=== PATIENT | female | born 1985 | race Caucasian/White ===

== ENCOUNTER 2016-11-06 05:05 | Day surgery (SDC) | payer OTHER ==
[~2016-11-06 05:05] MED LIST: BACTRIM DS TAB1 EAC2 PO; CELEXA40 M2 PO; CPAP; DIFFERIN TOP; IBUPROFEN200 M2 PO; JUNEL FE 1 MG-1 EACH PO; NORCO 5-325 TA1 EACH PO; OMEPRAZOLE40 M2 PO; PROAIR HFA8.5 GM INH; REQUIP1 M1 PO; SINGULAIR10 M1 PO; SYMBICORT INH; TYLENOL EXTRA500 M1 PO; ZYRTEC1010 PO
[2016-11-07] MEDS ORDERED: PERCOCET 5-3251 EACH PO (12:13)
== END 2016-11-07 13:25 ==
LOC: SHSA 05:05 → ORW 06:58 → PACU 08:17 → OBGF 09:50
PROC: 0UT94ZZ Resection of Uterus, Percutaneous Endoscopic Approach (ICD-10-PCS; principal; 2016-11-06)
PROC: 0UTC4ZZ Resection of Cervix, Percutaneous Endoscopic Approach (ICD-10-PCS; 2016-11-06)
PROC: 0UB74ZZ Excision of Bilateral Fallopian Tubes, Percutaneous Endoscopic Approach (ICD-10-PCS; 2016-11-06)
DX: D25.9 Leiomyoma of uterus, unspecified (principal); E28.2 Polycystic ovarian syndrome; J45.909 Unspecified asthma, uncomplicated; K21.9 Gastro-esophageal reflux disease without esophagitis; F32.9 Major depressive disorder, single episode, unspecified; Z91.040 Latex allergy status; Z98.818 Other dental procedure status; Z79.899 Other long term (current) drug therapy
CPT/HCPCS: J0690; J3010; J7030; J7121

== ENCOUNTER 2016-12-05 19:03 | Emergency (ER) | payer OTHER ==
[~2016-12-05 19:03] MED LIST changes: +PERCOCET 5-3251 EACH PO
[2016-12-05] MEDS ORDERED: FLAGYL500 M1 PO (19:26)
[2016-12-05] MEDS ORDERED: ESTRADIOL1 M1 PO (19:29)
[2016-12-05 20:44] LABS: URINE APPEARANCE HAZY; URINE BILIRUBIN NEGATIVE (NEG); URINE BLOOD LARGE (NEG); URINE COLOR YELLOW; URINE GLUCOSE (UA) NEGATIVE (NEG); URINE KETONE NEGATIVE (NEG); URINE LEUKOCYTE ESTERASE POSITIVE (NEG); URINE NITRITE NEGATIVE (NEG); URINE PROTEIN MODERATE (NEG)
[2016-12-05 20:45] LABS: BASO % 0.5 % (0-2); EOS % 8.9 % (0-7); HGB-HEMOGLOBIN 12.9 gm/dl (12.0-15.5); IMMATURE GRANULOCYTES ABSOLUTE 0.03 tho/cmm (0-0.03); IMMATURE GRANULOCYTES PERCENT 0.2 % (0-0.3); LYMPH % 44.8 % (20-45); MCH (MEAN CORPUSCULAR HGB) 25.8 pg (28.0-32.0); MCHC MEAN CORPUSCULAR HGB CONC 33.1 % (32.0-36.0); MEAN PLATELET VOLUME 9.1 cmc (9.4-12.4); MONO % 5.9 % (0-12); NEUTROPHIL ABSOLUTE COUNT 4.8 tho/cmm (1.6-8.0); NEUTROPHIL-AUTOMATED 4.8 tho/cmm (1.6-8.0); NEUTROPHILS % 39.7 % (40-80); PLATELET COUNT 520 tho/cmm (150-450); RED CELL DISTRIBUTION WIDTH 15.3 % (12.4-16.4); WHITE BLOOD COUNT 12.1 tho/cmm (4.0-10.0)
[2016-12-05 20:48] LABS: BASO ABSOLUTE COUNT 0.1 tho/cmm (0.0-0.2); EOSINOPHIL ABSOLUTE COUNT 1.1 tho/cmm (0.0-0.7); LYMPH ABSOLUTE COUNT 5.4 tho/cmm (0.8-4.5); MONOCYTE ABSOLUTE COUNT 0.7 tho/cmm (0.0-1.2)
[2016-12-05 20:52] LABS: URINE BACTERIA 3+
[2016-12-05 20:53] LABS: URINE WBC 70-100 /[HPF] (0-5)
[2016-12-05 20:54] LABS: PREGNANCY-SERUM NEGATIVE (NEGATIVE)
[2016-12-05 20:54] LABS: URINE EPITHELIAL CELLS 20-30 /[HPF] (0-10)
[2016-12-05 21:12] LABS: ALB/GLOB RATIO 1.1 (0.8-2.0); ALBUMIN 4.6 g/dl (3.5-5.0); ALKALINE PHOSPHATASE 69 U/L (33-138); ALT/SGPT 24 U/L (12-78); ANION GAP 13 mmol/L (0-20); AST/SGOT 17 U/L (10-40); BILIRUBIN,TOTAL 0.2 mg/dl (0-1.5); BLOOD UREA NITROGEN 3 mg/dl (6-24); CALCIUM 9.2 mg/dl (8.5-10.5); CARBON DIOXIDE-VENOUS 27 mmol/L (22-32); CHLORIDE 106 mmol/l (96-110); CREATININE 0.61 mg/dl (0.50-1.10); GLUCOSE 88 mg/dL (70-110); POTASSIUM 3.6 mmol/L (3.7-5.1); SODIUM 142 mmol/L (135-145); eGFR VALUE FOR BLACK >90 mL/Min
[2016-12-05] MEDS ORDERED: KEFLEX500 M4 PO (21:42)
== END 2016-12-05 21:49 ==
LOC: EDMED 19:03
PROVIDERS: Physician Assistant
DX: R10.32 Left lower quadrant pain (principal); R11.0 Nausea; J45.909 Unspecified asthma, uncomplicated; G47.33 Obstructive sleep apnea (adult) (pediatric); Z90.710 Acquired absence of both cervix and uterus; Z79.899 Other long term (current) drug therapy
CPT/HCPCS: J1170; J1885; J2405